=== PATIENT | female | born 1990 ===

== ENCOUNTER 2019-04-12 06:15 | Day surgery (SDC) | payer OTHER ==
[2019-04-12] MEDS ORDERED: CARAFATE1 GM PO (11:56)
[2019-04-12] MEDS ORDERED: PROTONIX40 MG PO (11:56)
== END 2019-04-12 14:20 | disposition home or self-care (01) ==
LOC: AMB-ENDOS 06:15 → ADM 14:30
DX: K29.40 Chronic atrophic gastritis without bleeding (principal); K44.9 Diaphragmatic hernia without obstruction or gangrene